=== PATIENT | male | born 1955 | race African-American/Black ===

== ENCOUNTER 2018-02-12 07:13 | Emergency (ER) | payer OTHER ==
[2018-02-12 07:31] VITALS: BP 132/80; PULSE 70; TEMP 98.1; BMI 37.6
--- NOTE | 2018-02-12 07:38 | PDOC ---
History of Present Illness - General Chief Complaint: Injury Stated Complaint: FALL THIS AM INJURED RIGHT SHOULDER AND RIGHT HAND Time Seen by Provider: 02/12/18 07:17 History Source: Patient (Patient walked in along with his complaining that earlier today fell in a parking lot, injured right shoulder and right hand palm .), Care Provider (other injury, no LOC) Exam Limitations: No Limitations - History of Present Illness Severity: moderate, severe Modifying Factors: improves with: rest Associated Symptoms: reports: denies symptoms Past History - Travel Traveled outside of the country in the last 30 days: No Close contact w/someone who was outside of country & ill: No - Past Medical History Allergies/Adverse Reactions: Allergies Allergy/AdvReac Type Severity Reaction Status Date / Time No Known Allergies Allergy Unverified 02/12/18 07:18 Home Medications: Ambulatory Orders Amlodipine Besylate 10 mg PO DAILY 02/12/18 Atorvastatin Ca [Lipitor] 10 mg PO HS 02/12/18 Carvedilol Phosphate [Coreg Cr -] 80 mg PO DAILY 02/12/18 Losartan Potassium 1 tab PO DAILY 02/12/18 COPD: No HTN: Yes - Immunization History Immunization Up to Date: Yes - Suicide/Smoking/Psychosocial Hx Smoking History: Never smoked Have you smoked in the past 12 months: No Information on smoking cessation initiated: No Hx Alcohol Use: No Drug/Substance Use Hx: No Substance Use Type: None Review of Systems - Review of Systems Able to Perform ROS?: Yes Is the patient limited Spanish proficient: Yes Constitutional: No: Symptoms Reported, See HPI, Chills, Diaphoresis, Fever, Loss of Appetite, Malaise, Night Sweats, Weakness, Weight Stable, Unintentional Wgt. Loss, Unexplained wgt Loss, Other HEENTM: No: Symptoms Reported, See HPI, Eye Pain, Blurred Vision, Tearing, Recent change in vision, Double Vision, Cataracts, Ear Pain, Ocular Prothesis, Ear Discharge, Nose Pain, Nose Congestion, Tinnitus, Nose Bleeding, Hearing Loss , Throat Pain, Throat Swelling, Mouth Pain, Dental Problems, Difficulty Swallowing, Mouth Swelling, Other Cardiac (ROS): No: Symptoms Reported, See HPI, Chest Pain, Edema, Irregular Heart Rate, Lightheadedness, Palpitations, Syncope, Chest Tightness, Other Musculoskeletal: Yes: Symptoms Reported, See HPI Integumentary: Yes: Other (abrasion right hand ) All Other Systems: Reviewed and Negative *Physical Exam - Vital Signs Last Vital Signs Temp Pulse Resp BP Pulse Ox 98.1 F 70 20 132/80 100 02/12/18 07:14 02/12/18 07:14 02/12/18 07:14 02/12/18 07:14 02/12/18 07:14 - Physical Exam General Appearance: Yes: Nourished, Appropriately Dressed, Moderate Distress HEENT: positive: Normal Voice Neck: positive: Supple Respiratory/Chest: negative: Respiratory Distress Cardiovascular: positive: Regular Rate Musculoskeletal: positive: Decreased Range of Motion (right shoulder limited abduction , painful) Extremity: positive: Normal Capillary Refill Integumentary: positive: Normal Color, Dry Neurologic: positive: Fully Oriented, Alert, Normal Mood/Affect Medical Decision Making - Medical Decision Making Patient seen immediately from arrival, Xrays ordered , denied any pain medication 02/12/18 08:55 *DC/Admit/Observation/Transfer Diagnosis at time of Disposition: Shoulder fracture, right Qualifiers: Encounter type: initial encounter Fracture type: closed Qualified Code(s): S42.91XA - Fracture of right shoulder girdle, part unspecified, initial encounter for closed fracture - Discharge Dispostion Disposition: HOME Condition at time of disposition: Stable Decision to Admit order: No - Referrals Referrals: Arnulfo Hager MD [Staff Physician] - - Patient Instructions Printed Discharge Instructions: How to Use a Sling, How to Prevent Falls, DI for Shoulder Fracture - Post Discharge Activity
== END 2018-02-12 09:19 | disposition home or self-care (01) ==
LOC: FER 07:13
DX: S42.91XA Fracture of right shoulder girdle, part unspecified, initial encounter for closed fracture (principal); W18.39XA Other fall on same level, initial encounter; Y93.89 Activity, other specified; Y92.481 Parking lot as the place of occurrence of the external cause; I10 Essential (primary) hypertension
CPT/HCPCS: 73030-TC-RT-FY; 73200-TC-RT; 99282-25